=== PATIENT | female | born 1955 | race Caucasian/White ===

== ENCOUNTER 2016-04-16 07:23 | Day surgery (SDC) | payer OTHER ==
--- OUTSIDE RECORDS SUMMARY | 2016-04-16 07:27 | XMS REPORT | Continuity of Care Document ---
:1955 Author Organization [facility] ([facility]) Address [address] [place] [address] Phone [phone] Care Team Providers Name Role Phone Provider, No-Primary Care Primary Care Provider Unavailable Source Comments This disclosure is being made pursuant to the Care Everywhere program, applicable federal and state laws, and may not contain all informaitonavailable regarding this patient.[facility] ([facility]) Active Allergies and Adverse Reactions No Active Allergies Current Medications Prescription Sig. Disp. Refills Start Date End Date Status bisoprolol-hydrochlor take 1 Tab by mouth Active othiazide (ZIAC) daily. 5-6.25 mg per tablet lansoprazole take 30 mg by mouth Active (PREVACID) 30 mg 2 times daily. capsule omeprazole (PRILOSEC take 20 mg by mouth Active OTC) 20 mg tablet daily. lisinopril (PRINIVIL) take 2.5 mg by Active 2.5 mg tablet mouth daily. bisoprolol-hydrochlor take 1 Tab by mouth Active othiazide (ZIAC) daily. 10-6.25 mg per tablet dicyclomine (BENTYL) take 10 mg by mouth Active 10 mg capsule before each meal and at bedtime. albuterol (PROVENTIL) use 3 mL by 3 mL 0 03/25/2009 Active 2.5 mg/3 mL inhalation once for inhalation solution 1 dose. Indications: Bronchospasm Prevention fluticasone-salmetero use 1 Puff by 1 Inhaler 2 03/25/2009 Active l (ADVAIR DISKUS) inhalation every 12 100-50 mcg/Dose hours. Indications: inhaler Bronchial Asthma albuterol (PROVENTIL, use 1-2 Puffs by 1 Inhaler 3 03/25/2009 Active VENTOLIN) 90 inhalation every 2 mcg/Actuation inhaler hours as needed. Indications: Bronchospasm Prevention predniSONE take 3 Tabs by 12 Tab 0 03/25/2009 Active (DELTASONE) 20 mg mouth daily for 4 tablet days. Take as directed, Indications: Asthma Exacerbation norethindrone 5 mg take 2 Tabs by 60 Tab 11 05/11/2009 Active Tab tablet mouth daily. Indications: Abnormal Uterine Bleeding due to Hormonal Imbalance Active Problems Not on file Social History Tobacco Use Types Packs/Day Years Used Date Never Assessed Last Filed Vital Signs Vital Sign Reading Time Taken Blood Pressure 131/74 08/17/2009 1:37 PM CDT Pulse 61 08/17/2009 1:37 PM CDT Temperature 36.9 C (98.4 F) 03/25/2009 2:36 PM SPA HOST Respiratory Rate 20 03/25/2009 2:36 PM SPA HOST Height 1.485 m (4' 10.47") 05/11/2009 1:42 PM CDT Weight 72.5 kg (159 lb 13.3 oz) 08/17/2009 1:37 PM CDT Body Mass Index 32.88 08/17/2009 1:37 PM CDT Oxygen Saturation 97% 03/25/2009 2:36 PM SPA HOST Plan of Care Health Maintenance Due Date Last Done Comments HCV Screening 1955 Hepatitis B Vaccine (1 of 3 - Primary Series) 1955 Tdap Vaccine 1968 Lipid Disorder Screening 09/12/1975 MMR Vaccine 09/12/1975 Td Vaccine 09/12/1975 Cervical Cancer Screening 09/12/1987 Mammogram 1997 Colonoscopy 2007 Influenza Vaccine: Seasonal (#1) 09/12/2015 Results from Last 3 Months Not on file
--- NOTE | 2016-04-16 07:48 | OR ---
Anesthesia Pre Procedure Eval Date of Service: 04/16/16 Pre Procedure Evaluation: Last Vital Signs Temp 36.7 C 04/16/16 07:30 Pulse 80 04/16/16 07:30 Resp 16 04/16/16 07:30 BP 149/79 04/16/16 07:30 Pulse Ox 94 04/16/16 07:30 O2 Oxygen Delivery Method Room Air Anesthesia Pre Procedure Evaluation DATE: 04/16/2016. TIME: 0740. INDICATIONS: Abnormal brain scan,R94.02 PAST MEDICAL HISTORY: Is a 60-year-old female who is been experiencing frontal headaches and numbness tingling around her mouth and right eye EXAM: MRI report and films were reviewed. Pain is 0/10 on pain scale at present. ASSESSMENT OF MEDICAL STATUS: O.K. to proceed with lumbar puncture. PLANNED PROCEDURE: Lumbar puncture. Home Medications: HOME MEDICATIONS FLUoxetine HCL [Prozac] 20 mg PO DAILY 07/04/13 [Last Taken 04/16/16] ALPRAZolam [Xanax] 0.5 mg PO DAILY 04/10/16 [Last Taken 04/16/16] Bupropion HCl [Wellbutrin Sr] 100 mg PO DAILY 04/10/16 [Last Taken 04/16/16] Gabapentin [Neurontin] 300 mg PO DAILY 04/10/16 [Last Taken Unknown] Omeprazole [Prilosec] 20 mg PO DAILY 04/10/16 [Last Taken 04/16/16]
--- NOTE | 2016-04-16 08:25 | OR ---
Anesthesia Procedure Note - Anesthesia Procedure Note Date of Service: 04/16/16 Narrative: Vital Signs - Last Taken Temp 36.7 C 04/16/16 07:30 Pulse 72 04/16/16 08:15 Resp 18 04/16/16 08:15 BP 135/71 04/16/16 08:15 Pulse Ox 91 04/16/16 08:15 O2 Oxygen Delivery Method Room Air 04/16/16 08:22 ANESTHESIA PROCEDURE NOTE Date of Procedure: 04/16/2016. Time of procedure: 0800. Performed by: Wilfrido Gonzalez CRNA Cross Tie Cutter: None. Preprocedure diagnosis: Abnormal brain scan; R94.02. Post procedure diagnosis: Same. Procedure: Lumbar Puncture. Indications: This is a 60-year-old female who is been experiencing frontal headaches and numbness tingling around her mouth and right eye. Findings: Opening pressure = 20.5 mmHg Closing pressure = 18 mmHg. Details of the procedure: After informed consent was obtained the patient was placed in the right lateral decubitus position. Duraprep was applied to the patients back. The patient was then draped in a sterile fasion. Lidocaine 1% was infiltrated to the skin and subcutaneous tissues at the intended target site. The subarachnoid scace was identified at the level of the L4-5 interspace using a 22-gauge Linares spinal needle. Free flow of CSF was noted. Pressure measurements were obtained.Four specimens were drawn and sent to lab. A total of 8 mL of CSF was withdrawn. The spinal needle was removed intact. A Band- Aid was applied to the patient's back. EBL: Minimal. Fluids: N/A. Specimen: N/A. Post procedure condition: The patient tolerated the procedure well. No complications were noted. Thank you for this consultation. Wilfrido Gonzalez CRNA
[2016-04-16 09:04] VITALS: BP 122/75
[2016-04-16 11:02] LABS: CSF Appearance Clear (CLEAR); CSF Color Colorless (COLORLESS); CSF RBC 754 /uL (0-10)
[2016-04-16 11:03] LABS: CSF WBC 0 /uL (0-10)
[2016-04-16 11:04] LABS: CSF Appearance Clear (CLEAR); CSF Color Colorless (COLORLESS); CSF RBC 43 /uL (0-10); CSF WBC 0 /uL (0-10)
[2016-04-20 21:17] LABS: CSF IgG Synthesis -2.7 mg/24 h (-9.9 TO +3.3)
[2016-04-20 21:51] LABS: ACE 17 U/L (9-67); CSF IgG Index 0.47
== END 2016-04-16 07:24 | disposition home or self-care (01) ==
LOC: AMB 07:23
PROVIDERS: ATTEND Nurse Practitioner
PROC: 009U3ZX Drainage of Spinal Canal, Percutaneous Approach, Diagnostic (ICD-10-PCS; principal; 2016-04-16 08:00)
DX: R51 Headache (principal); R20.0 Anesthesia of skin

== ENCOUNTER 2017-03-10 12:00 | Emergency (ER) | payer BC, OTHER ==
[2017-03-10] MEDS ORDERED: KETOROLAC TROMETHAMINE 30 MG/ML VIAL IM ONE (12:55)
[2017-03-10] MEDS ORDERED: ORPHENADRINE CITRATE 30 MG/ML VIAL IM ONE (12:55)
[2017-03-10] MEDS ORDERED: ORPHENADRINE CITRATE 30 MG/ML VIAL ONE (12:59)
[2017-03-10] MEDS ORDERED: KETOROLAC TROMETHAMINE 30 MG/ML VIAL ONE (12:59)
[2017-03-10 13:46] VITALS: BP 134/67
--- NOTE | 2017-03-10 14:15 | ERNOTE ---
Lower Extremity HPI - Narrative Date of Service: 03/10/17 - General Lower Extremities Pain: other: left - back to knee Time Seen by Provider: 03/10/17 12:45 Source: patient Exam Limitations: no limitations - Immun/Allergies/Home Medications Immunizations: IMMUNIZATION HX Immunizations Up to Date No History of Influenza Vaccine No Hx Pneumococcal Vaccination No Allergies/Adverse Reactions: Allergies Allergy/AdvReac Type Severity Reaction Status Date / Time No Known Allergies Allergy Verified 04/16/16 07:33 Home Medications: HOME MEDICATIONS ALPRAZolam [Xanax] 0.5 mg PO DAILY 04/10/16 [Last Taken 04/16/16] Bupropion HCl [Wellbutrin Sr] 100 mg PO DAILY 04/10/16 [Last Taken 04/16/16] Gabapentin [Neurontin] 300 mg PO DAILY 04/10/16 [Last Taken Unknown] Omeprazole [Prilosec] 20 mg PO DAILY 04/10/16 [Last Taken 04/16/16] Cyclobenzaprine HCl [Flexeril] 10 mg PO TID PRN #20 tab 03/10/17 [Last Taken Unknown] Enalapril Maleate [Vasotec] 20 mg PO DAILY 03/10/17 [Last Taken Unknown] predniSONE [Prednisone] 2 tab PO DAILY 5 Days #10 tab 03/10/17 [Last Taken Unknown] - History of Present Illness Narrative: Patient presents to the ED with left back pain that goes along her left leg to her knee. She had talked to her doctor who thought it was sciatica. It has been there for 4 days. Worsening. No fever. No acute focal N/T/W. No loss of bowel or bladder control. No localizing joint pain. She tells me she has a bad knee. No trauma or injury to bring this on. Better with rest, worse with movement. Pain can be severe with movement. Pain radiates from back down her leg to the knee. Occurred: other - 4 days ago Method of Injury: Reports: no apparent injury Modifying Factors - (Improves): Reports: rest Modifying Factors - (Worsens): Reports: movement Associated Symptoms: Denies: weakness, sensory loss, bowel/bladder problems Other Injuries: Reports: none Subsequent Symptoms: Denies: sensory loss, numbness, motor loss, bowel/bladder problem Prior Treament: Denies: recently seen Review of Systems - Review of Systems Constitutional: Absent: fever Respiratory: Absent: shortness of breath Cardiology: Absent: chest pain Gastrointestinal/Abdominal: Present: no symptoms reported Genitourinary: Present: no symptoms reported Musculoskeletal: Present: See HPI Skin: Absent: rash Neurological: Absent: weakness - Patient's Past Medical History Patient History - Medical: Anxiety, Depression, GERD, Headache Patient History - Cardiac/Respiratory: Hypertension Patient History - Cancer: No Hx of Cancer Patient History - Surgical Procedures: Cholecystectomy, Tubal Ligation, Orthopedic Patient History - Other: None - Social History Living Situations: home Abuse History: No History of abuse Psych History: Hx of Anxiety, Hx of Depression, Current tx/ever been on anti- depressants or anti-anxiety meds Smoking Status: Never smoker Have you smoked in the past 12 months: No Do you dip or chew tobacco: No Alcohol Use: none Drug Use: none - Immunizations Immunizations Up to Date: No Hx Pneumococcal Vaccination: No History of Influenza Vaccine: No Physical Exam - Physical Exam General Appearance: Present: alert, no apparent distress Head Exam: Present: normal inspection, no evidence of injury Eye Exam: Normal inspection: bilateral, PERRL: bilateral Ears, Nose, Throat: Present: normal ENT inspection Neck: Present: normal inspection Respiratory: Present: no respiratory distress, normal breath sounds, no accessory muscle use Cardiovascular/Chest: Present: regular rate, rhythm, normal peripheral pulses Gastrointestinal/Abdominal: Present: normal bowel sounds, nontender, nondistended, soft Back Exam: Present: no CVA tenderness, no vertebral tenderness, other - there is significant tenderness left low back musculature, she has significant discomfort with palpation of the musculature here.. Absent: CVA tenderness (R) , CVA tenderness (L), vertebral tenderness Extremity Exam: Present: other - Some muscular tendenress lateral left thigh. No other tenderness. No compartment syndrome. No groin tendenress. No specific bone tendenress or joint tendenress. Nothing to suggest septic arthritis, fracture, DVT or neuro vascular deficit. Neurological Exam: Present: alert, no motor/sensory deficits, other - no suggestion of motor or sensory deficit. No cauda-equina syndrome. No neuro deficits Skin Exam: Present: normal color, warm/dry ED Progress - Vital Signs Patient's Vital Signs:: I have reviewed the patient's vital signs. Vital Signs: Vital Signs 03/10/17 03/10/17 12:16 12:50 Temperature 37.0 C Pulse Rate 88 96 Respiratory 16 Rate Blood Pressure 127/76 134/67 O2 Sat by Pulse 94 96 Oximetry - X-Ray X-Ray #1 X-Ray: hip Interpretation: Interp. by me X-ray Comments: I reviewed official radiology report X-Ray #2 X-Ray: lumbosacral Interpretation: Interp. by me X-ray Comments: I reviewed official radiology report - Progress/Reassessment Chief Complaint: Lower Extremity Pain/ Injury Progress Note-Subjective: 03/10/17 14:13 Feels improved with meds. Nothing to suggest DVT, neuro deficit, cauda-equina syndrome, septic arthritis or other acute life or limb threat. I feel clinically this is muscular and possible radiculitis. Will treat with muscle relaxants and steroid and close f/u. I discussed warning signs and reasons to return as well as the need for close f/u. Departure Clinical Impression: Musculoskeletal pain - Departure Disposition: Home self-care Condition: Stable Instructions: Musculoskeletal Pain Additional Instructions: Rest. Fluids. No driving with medications. Return for increased pain, numbness, tingling, weakness, trouble with bowel or bladder control or if your condition worsens or changes in any way. See your doctor within 48 hours for a re-check. Referrals: Beverly Welch CNP [Primary Care Provider] - Prescriptions: Cyclobenzaprine HCl [Flexeril] 10 mg PO TID PRN #20 tab PRN Reason: MUSCLE SPASMS predniSONE [Prednisone] 2 tab PO DAILY 5 Days #10 tab
== END 2017-03-10 14:10 | disposition home or self-care (01) ==
LOC: ER 12:00
DX: M47.896 Other spondylosis, lumbar region; K21.9 Gastro-esophageal reflux disease without esophagitis; M79.1 Myalgia; F41.8 Other specified anxiety disorders; I10 Essential (primary) hypertension